=== PATIENT | male | born 1965 | race American Indian/Alaskan Native ===

== ENCOUNTER 2021-12-02 09:44 | Emergency (ER) | payer BC ==
[2021-12-02 09:48] VITALS: BP 180/98
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
== END 2021-12-02 10:00 | disposition home or self-care (01) ==
LOC: ED 09:44
DX: S76.011A Strain of muscle, fascia and tendon of right hip, initial encounter (principal); S20.212A Contusion of left front wall of thorax, initial encounter; V87.7XXA Person injured in collision between other specified motor vehicles (traffic), initial encounter; Y93.89 Activity, other specified; Y92.89 Other specified places as the place of occurrence of the external cause; Y99.8 Other external cause status
CPT/HCPCS: 99283